=== PATIENT | male | born 1960 | race Caucasian/White ===

== ENCOUNTER 2018-06-15 14:15 | Inpatient (IN) | payer BC ==
[~2018-06-15] VITALS: Ht 177.8 cm; Wt 90.7 kg
[2018-06-15 14:19] VITALS: Ht 177.8 cm; Wt 90.7 kg
[2018-06-15 16:15] LABS: BASOPHIL % 0.2 % (0-2); PLATELET COUNT 309 x10^3mcL (130-400); RED CELL DISTRIBUTION WIDTH 12.5 % (11.5-14.5)
[2018-06-15 16:36] LABS: ALBUMIN 4.1 g/dL (3.4-5.0); ALKALINE PHOSPHATASE 47 U/L (46-116); ALT/SGPT 26 U/L (16-63); AST/SGOT 15 U/L (15-37); BILIRUBIN TOTAL 0.6 mg/dL (0.20-1.00); CALCIUM 9.5 mg/dL (8.5-10.1); CARBON DIOXIDE 26.5 mmol/L (21-32); CHLORIDE SERUM 100 mmol/L (98-107); CREATININE SERUM 1.2 mg/dL (0.7-1.3); GFR1 > 60 mL/min; GLUCOSE SERUM 128 mg/dL (74-106); POTASSIUM SERUM 3.8 mmol/L (3.5-5.1); SODIUM SERUM 136 mmol/L (136-145); TOTAL PROTEIN, SERUM 7.9 g/dL (6.4-8.2); URIC ACID 3.7 mg/dL (3.5-7.2)
[2018-06-15 18:17] LABS: microscopic required? YES; urine erythrocyte TRACE (NEGATIVE)
[2018-06-15 18:26] LABS: AMPHETAMINE QUAL UR NONE DETECTED (See below)
[2018-06-15 19:46] VITALS: BP 165/99
[2018-06-15 19:50] LABS: CHOLESTEROL/HDL RATIO 3.2; PHOSPHOROUS 1.8 mg/dL (2.5-4.9)
[2018-06-16 05:07] VITALS: BP 161/83
[2018-06-16 09:52] VITALS: BP 145/77
[2018-06-16 11:05] LABS: BASOPHIL % 0.2 % (0-2); PLATELET COUNT 243 x10^3mcL (130-400); RED CELL DISTRIBUTION WIDTH 12.7 % (11.5-14.5)
[2018-06-16 11:21] LABS: CALCIUM 8.5 mg/dL (8.5-10.1); CARBON DIOXIDE 25.4 mmol/L (21-32); CHLORIDE SERUM 104 mmol/L (98-107); CREATININE SERUM 1.1 mg/dL (0.7-1.3); GFR1 > 60 mL/min; GLUCOSE SERUM 114 mg/dL (74-106); MAGNESIUM 1.7 mg/dL (1.8-2.4); PHOSPHOROUS 2.9 mg/dL (2.5-4.9); POTASSIUM SERUM 4.1 mmol/L (3.5-5.1); SODIUM SERUM 138 mmol/L (136-145)
[2018-06-16 14:22] VITALS: BP 147/76
[2018-06-16 18:32] VITALS: BP 138/94
[2018-06-16 20:55] VITALS: BP 137/72
[2018-06-17 05:16] VITALS: BP 143/68
[2018-06-17 06:35] LABS: BASOPHIL % 0.2 % (0-2); PLATELET COUNT 224 x10^3mcL (130-400); RED CELL DISTRIBUTION WIDTH 12.6 % (11.5-14.5)
[2018-06-17 06:49] LABS: CALCIUM 8.5 mg/dL (8.5-10.1); CARBON DIOXIDE 26.9 mmol/L (21-32); CHLORIDE SERUM 103 mmol/L (98-107); CREATININE SERUM 1.1 mg/dL (0.7-1.3); GFR1 > 60 mL/min; GLUCOSE SERUM 103 mg/dL (74-106); POTASSIUM SERUM 4.1 mmol/L (3.5-5.1); SODIUM SERUM 138 mmol/L (136-145)
[2018-06-17 09:37] VITALS: BP 130/73
[2018-06-17 13:47] VITALS: BP 134/69
[2018-06-17 16:55] VITALS: BP 134/70
[2018-06-17 20:52] VITALS: BP 136/70
[2018-06-18 05:03] VITALS: BP 114/51
[2018-06-18 09:50] VITALS: BP 127/72
[2018-06-18] MEDS ORDERED: MIRUD PO (11:21)
[2018-06-18] MEDS ORDERED: COL100 PO (11:25)
[2018-06-18 11:35] VITALS: BP 127/72
== END 2018-06-18 12:48 | disposition home or self-care (01) | DRG 389 ==
LOC: ED 14:15 → DU 18:37 → MU 18:37 → DU 21:57
PROVIDERS: Emergency Medicine; Family Medicine
DX: K56.7 Ileus, unspecified (principal); D68.59 Other primary thrombophilia; K59.00 Constipation, unspecified; S39.011A Strain of muscle, fascia and tendon of abdomen, initial encounter; E83.42 Hypomagnesemia; E83.39 Other disorders of phosphorus metabolism; F17.220 Nicotine dependence, chewing tobacco, uncomplicated; K31.89 Other diseases of stomach and duodenum; K57.90 Diverticulosis of intestine, part unspecified, without perforation or abscess without bleeding; Z88.6 Allergy status to analgesic agent; Z88.1 Allergy status to other antibiotic agents
CPT/HCPCS: C9113; J1885; J1956; J2060; J2270; J2405; J2765; J3490; J7030; Q0092; Q9966